=== PATIENT | male | born 1965 | race Hispanic/Latino ===

== ENCOUNTER 2022-08-10 20:16 | Inpatient (IN) | payer OTHER ==
[~2022-08-10] VITALS: Ht 162.6 cm; Wt 86.5 kg
[2022-08-10 22:10] VITALS: BP 132/77
[2022-08-10] MEDS ORDERED: LIDOCAINE HCL-MPF 1% 2ML VIAL ONE ×2 (22:30→22:32)
[2022-08-10] MEDS ORDERED: ZOLPIDEM TARTRATE 5 MG TAB PO PRN (23:00)
[2022-08-10] MEDS ORDERED: MAG/ALUM/SIMETH 30 ML UDCUP PO PRN (23:00)
[2022-08-10] MEDS ORDERED: ACETAMINOPHEN WITH CODEINE 1 TAB TAB PO PRN (23:00)
[2022-08-10] MEDS ORDERED: LACTULOSE 20 GM/30 ML UDCUP PO PRN (23:00)
[2022-08-10] MEDS ORDERED: DIPHENHYDRAMINE HCL 25 MG CAPSULE PO PRN (23:00)
[2022-08-10] MEDS ORDERED: ACETAMINOPHEN 325 MG TAB PO PRN (23:00)
[2022-08-10] MEDS ORDERED: ONDANSETRON 4MG INJ IV PRN (23:00)
[2022-08-10] MEDS: MORPHINE 4 MG SYG IV PRN (23:11)
[2022-08-10] MEDS: AMOX/CLAV 875/125MG TAB PO SCH (23:46)
[2022-08-11] VITALS (7 sets, daily range): BP systolic 122–135; BP diastolic 65–89
[2022-08-11] MEDS: ACETAMINOPHEN 325 MG TAB PO PRN ×2 (00:16→23:27)
[2022-08-11 04:39] LABS: APPEARANCE,URINE CLEAR (CLEAR); BILIRUBIN,URINE NEGATIVE (NEGATIVE); COLOR,URINE LIGHT-YELLOW (YELLOW); GLUCOSE, URINE (UA) NEGATIVE (NEGATIVE); KETONES,URINE NEGATIVE (NEGATIVE); LEUKOCYTE ESTERASE ,URINE NEGATIVE Leu/uL (NEGATIVE); NITRATE,URINE NEGATIVE (NEGATIVE); OCCULT BLOOD,URINE NEGATIVE (NEGATIVE); PH,URINE 7.5 (5.0-8.0); PROTEIN,URINE NEGATIVE (NEGATIVE); UROBILINOGEN,URINE 0.2 mg/dL (0.2-1.0)
[2022-08-11 05:45] LABS: HEMATOCRIT 42.8 % (42-54); MEAN CORPUSCULAR HEMOGLOBIN 30.3 pg (27.0-33.0); MEAN CORPUSCULAR HGB CONC 34.3 g/dL (32.0-36.0); MEAN CORPUSCULAR VOLUME 88.2 fL (79-99); RED BLOOD CELL COUNT(AUTO) 4.85 MIL/uL (4.50-6.20); RED CELL DISTRIBUTION WIDTH 12.5 % (11.0-15.5); WHITE BLOOD COUNT (AUTO) 14.2 K/uL (4.8-10.8)
[2022-08-11 05:55] LABS: POTASSIUM 5.1 mmol/L (3.5-5.1)
[2022-08-11] MEDS: MORPHINE 4 MG SYG IV PRN ×2 (09:58→16:42)
[2022-08-11] MEDS: AMOX/CLAV 875/125MG TAB PO SCH (10:26)
[2022-08-11] MEDS ORDERED: CEFTRIAXONE 1G VIAL IVP SCH (16:00)
[2022-08-11] MEDS: DOXYCYCLINE HYCLATE 100 MG TABLET PO SCH (20:56)
[2022-08-12 03:34] VITALS: BP 124/74
[2022-08-12 08:00] VITALS: BP 136/76
[2022-08-12] MEDS: DOXYCYCLINE HYCLATE 100 MG TABLET PO SCH (08:53)
[2022-08-12 11:48] VITALS: BP 134/78
[2022-08-12] MEDS ORDERED: LEVO-70 PO (12:39)
[2022-08-12] MEDS ORDERED: DOXY100T2 PO (12:39)
== END 2022-08-12 13:55 | disposition home or self-care (01) | DRG 718 ==
LOC: 4DH 22:06
PROVIDERS: ADMIT Internal Medicine; ATTEND Internal Medicine
PROC: 0V950ZZ Drainage of Scrotum, Open Approach (ICD-10-PCS; principal; 2022-08-11)
DX: N49.2 Inflammatory disorders of scrotum (principal); F17.210 Nicotine dependence, cigarettes, uncomplicated; I10 Essential (primary) hypertension; N50.89 Other specified disorders of the male genital organs; Z80.42 Family history of malignant neoplasm of prostate
CPT/HCPCS: 36415; 76870; 80048; 81003; 82948; 85027; 87040; 87088; G0378; J0696; J2270; J3490